=== PATIENT | female | born 1965 | race Caucasian/White ===

== ENCOUNTER 2016-08-05 16:30 | Outpatient (CLI) | payer OTHER ==
--- NOTE | 2016-08-05 19:04 | RAD ---
RIGHT KNEE FOUR VIEWS 08/05/16 HISTORY: 51-year-old female with chronic right knee pain. COMPARISON: 10/16/15. FINDINGS: Degenerative and osteoarthrosis changes of the right knee joint. No fracture or dislocation. IMPRESSION: No fracture or dislocation. Degenerative changes and osteoarthrosis. Stable from 10/16/15. POS: [facility]
== END 2016-08-05 16:31 | disposition home or self-care (01) ==
LOC: BURRAD 16:30
PROVIDERS: ATTEND Family Medicine
DX: M25.561 Pain in right knee (principal); M17.11 Unilateral primary osteoarthritis, right knee

== ENCOUNTER 2017-07-28 14:34 | Emergency (ER) | payer OTHER ==
[2017-07-28 15:05] LABS: #Basophils 0.1 thou/uL (0.0-0.2); #Eosinphils 0.4 thou/uL (0.0-0.7); #Lymphocytes 2.6 thou/uL (1.20-3.40); #Monocytes 0.8 thou/uL (0.11-0.59); #Neutrophils 6.2 thou/uL (1.40-6.50); %Basophils 1.2 % (0.0-1.0); %Eosinophils 3.6 % (0.0-10.0); %Lymphocytes 25.5 % (21.0-51.0); %Monocytes 7.7 % (0.0-10.0); Hemoglobin 11.8 g/dL (12.0-16.0); Mean Corpuscular HGB CONC 34.1 g/dL (32.0-36.0); Mean Corpuscular Hemoglobin 26.8 pg (27.0-31.0); Mean Corpuscular Volume 78.5 fl (81.0-99.0); Mean Platelet Volume 6.2 fL (7.4-10.4); Platelet Count 300 thou/uL (130-400)
[2017-07-28 15:22] LABS: ALT (SGPT) 17 U/L (8-55); AST (SGOT) 13 U/L (5-34); Alkaline Phosphatase 84 U/L (40-150); Anion Gap 14 mmol/L (10-20); BUN (Urea Nitrogen) 24 mg/dL (9.8-20.1); Bilirubin, Total 0.3 mg/dL (0.2-1.2); Calc. Creatinine Clearance 0 mL/min (70-130); Calcium 9.1 mg/dL (7.8-10.44); Carbon Dioxide 25 mmol/L (22-29); Chloride 106 mmol/L (98-107); Estimated GFR-MDRD 88; Globulin 2.7 g/dL (2.4-3.5); Glucose 121 mg/dL (70-105); Potassium 3.9 mmol/L (3.5-5.1); Protein, Total 6.7 g/dL (6.0-8.3); Sodium 141 mmol/L (136-145)
[2017-07-28 15:24] LABS: CKMB 1.5 ng/mL (0-6.6); Troponin I Less than 0.010 ng/mL (< 0.028)
[2017-07-28 18:00] LABS: Troponin I 0.021 ng/mL (< 0.028)
== END 2017-07-28 18:10 | disposition home or self-care (01) ==
LOC: BURERS 14:34
DX: I47.1 Supraventricular tachycardia (principal); E66.9 Obesity, unspecified; F17.210 Nicotine dependence, cigarettes, uncomplicated; Z79.899 Other long term (current) drug therapy
CPT/HCPCS: 80053; 82553; 84484; 85025; 93005

== ENCOUNTER 2019-03-17 04:12 | Emergency (ER) | payer OTHER ==
[2019-03-17] MEDS ORDERED: Adenosine 6 MG/2 ML VIAL ONE (04:22)
[2019-03-17] MEDS ORDERED: Ondansetron PF 4 MG/2 ML Vial ONE (04:28)
[2019-03-17 04:47] LABS: #Basophils 0.2 thou/uL (0.0-0.2); #Eosinphils 0.4 thou/uL (0.0-0.7); #Lymphocytes 4.2 thou/uL (1.20-3.40); %Basophils 1.3 % (0.0-1.0); %Eosinophils 2.9 % (0.0-10.0); %Lymphocytes 28.3 % (21.0-51.0); %Monocytes 6.8 % (0.0-10.0); %Neutrophils 60.8 % (42.0-75.0); Hemoglobin 12.7 g/dL (12.0-16.0); Mean Corpuscular HGB CONC 30.4 g/dL (32.0-36.0); Mean Corpuscular Hemoglobin 25.6 pg (27.0-31.0); Mean Corpuscular Volume 84.4 fL (78.0-98.0); Mean Platelet Volume 7.2 fL (7.4-10.4); Platelet Count 386 thou/uL (130-400); RBC Distribution Width 15.5 % (11.5-14.5); Red Blood Cell (RBC) Count 4.95 mill/uL (4.20-5.40); White Blood Cell (WBC) Count 14.8 thou/uL (4.8-10.8)
[2019-03-17 05:00] LABS: ALT (SGPT) 21 U/L (8-55); AST (SGOT) 11 U/L (5-34); Albumin 4.2 g/dL (3.5-5.0); Alkaline Phosphatase 85 U/L (40-110); Anion Gap 17 mmol/L (10-20); BUN (Urea Nitrogen) 14 mg/dL (9.8-20.1); Bilirubin, Total 0.4 mg/dL (0.2-1.2); Calc. Creatinine Clearance 0 mL/min (70-130); Calcium 9.2 mg/dL (7.8-10.44); Carbon Dioxide 23 mmol/L (22-29); Chloride 108 mmol/L (98-107); Estimated GFR-MDRD 74; Globulin 2.6 g/dL (2.4-3.5); Glucose 160 mg/dL (70-105); Potassium 4.5 mmol/L (3.5-5.1); Protein, Total 6.8 g/dL (6.0-8.3); Sodium 143 mmol/L (136-145)
== END 2019-03-17 05:07 | disposition home or self-care (01) ==
LOC: BURERS 04:12
DX: I47.1 Supraventricular tachycardia (principal); E03.9 Hypothyroidism, unspecified; F17.210 Nicotine dependence, cigarettes, uncomplicated
CPT/HCPCS: 80053; 85025; 93005; J0153; J2405

== ENCOUNTER 2020-01-10 14:05 | Emergency (ER) | payer OTHER ==
[2020-01-10 14:50] LABS: Bilirubin Negative (Negative); Blood, Urine Negative (Negative); Clarity Clear (Clear); Glucose, Urine (Dipstick) Negative (Negative); Ketone, Urine Negative (Negative); Leukocyte Negative (Negative); Nitrite Negative (Negative); Protein, Urine (Dipstick) Negative (Neg-Trace); Specific Gravity, Urine 1.015 (1.005-1.030); Urobilinogen 0.2 mg/dL (Less than 2)
[2020-01-10] MEDS ORDERED: Atenolol 50 MG TAB ONE (15:02)
--- NOTE | 2020-01-10 17:27 | RAD ---
PORTABLE CHEST: 01/10/20 Comparison is made with the 05/29/14 study. The heart is probably upper normal to borderline in size. There is no vascular congestion, edema, or pleural effusion. The lungs are clear. The mediastinum showed no significant changes. The trachea is midline. IMPRESSION: Borderline heart size, exam otherwise unremarkable. POS: HOME
== END 2020-01-10 15:12 ==
LOC: BURERS 14:05
DX: I10 Essential (primary) hypertension (principal); Z79.899 Other long term (current) drug therapy; F17.210 Nicotine dependence, cigarettes, uncomplicated
CPT/HCPCS: 71045; 81003

== ENCOUNTER 2021-04-12 11:23 | Emergency (ER) | payer BC ==
[2021-04-12] MEDS ORDERED: Meclizine HCl 25 MG TAB ONE (12:02)
[2021-04-12] MEDS ORDERED: Ondansetron ODT 4 MG TAB ONE (12:02)
== END 2021-04-12 12:25 | disposition home or self-care (01) ==
LOC: BURERS 11:23
DX: H81.392 Other peripheral vertigo, left ear (principal); E07.9 Disorder of thyroid, unspecified; F17.210 Nicotine dependence, cigarettes, uncomplicated; Z79.899 Other long term (current) drug therapy
CPT/HCPCS: 99284; Q0162

== ENCOUNTER 2021-07-22 06:51 | Emergency (ER) | payer BC ==
[2021-07-22 07:27] LABS: #Basophils 0.1 thou/uL (0.0-0.2); #Eosinphils 0.4 thou/uL (0.0-0.7); #Lymphocytes 2.7 thou/uL (1.20-3.40); #Monocytes 0.7 thou/uL (0.11-0.59); #Neutrophils 7.6 thou/uL (1.40-6.50); %Basophils 1.1 % (0.0-1.0); %Eosinophils 3.4 % (0.0-10.0); %Lymphocytes 23.4 % (21.0-51.0); %Monocytes 5.8 % (0.0-10.0); %Neutrophils 66.3 % (42.0-75.0); Hemoglobin 13.5 g/dL (12.0-16.0); Mean Corpuscular HGB CONC 32.6 g/dL (32.0-36.0); Mean Corpuscular Hemoglobin 27.8 pg (27.0-31.0); Mean Corpuscular Volume 85.4 fL (78.0-98.0); Mean Platelet Volume 7.1 fL (7.4-10.4); Platelet Count 335 thou/uL (130-400); RBC Distribution Width 14.4 % (11.5-14.5); Red Blood Cell (RBC) Count 4.84 mill/uL (4.20-5.40); White Blood Cell (WBC) Count 11.5 thou/uL (4.8-10.8)
[2021-07-22 07:44] LABS: ALT (SGPT) 20 U/L (8-55); AST (SGOT) 10 U/L (5-34); Albumin 4.1 g/dL (3.5-5.0); Alkaline Phosphatase 91 U/L (40-110); Anion Gap 15 mmol/L (10-20); BUN (Urea Nitrogen) 14 mg/dL (9.8-20.1); Bilirubin, Total 0.3 mg/dL (0.2-1.2); Calc. Creatinine Clearance 0 mL/min (70-130); Calcium 9.2 mg/dL (7.8-10.44); Carbon Dioxide 26 mmol/L (22-29); Chloride 107 mmol/L (98-107); Globulin 3.1 g/dL (2.4-3.5); Glucose 181 mg/dL (70-105); Protein, Total 7.2 g/dL (6.0-8.3); Sodium 144 mmol/L (136-145)
[2021-07-22 08:02] LABS: Bilirubin Negative (Negative); Blood, Urine Negative (Negative); Clarity Clear (Clear); Glucose, Urine (Dipstick) Negative (Negative); Ketone, Urine Negative (Negative); Leukocyte Negative (Negative); Nitrite Negative (Negative); Protein, Urine (Dipstick) Negative (Neg-Trace); Specific Gravity, Urine 1.015 (1.005-1.030); Urobilinogen 0.2 mg/dL (Less than 2)
== END 2021-07-22 09:00 | disposition short-term general hospital (02) ==
LOC: BURERS 06:51
DX: I48.91 Unspecified atrial fibrillation (principal); F17.210 Nicotine dependence, cigarettes, uncomplicated; Z79.890 Hormone replacement therapy
CPT/HCPCS: 71045; 80053; 81003; 83880; 84443; 84484; 85025; 93005; 94760; 96374

== ENCOUNTER 2022-03-12 15:08 | Outpatient (CLI) | payer BC | END 2022-03-12 15:09 | disposition home or self-care (01) | LOC: BURRAD 15:08 | PROVIDERS: ATTEND Family Medicine | DX: M25.552 Pain in left hip (principal); R10.32 Left lower quadrant pain | CPT/HCPCS: 72170 ==

== ENCOUNTER 2022-07-22 19:39 | Emergency (ER) | payer BC, OTHER ==
[2022-07-22] MEDS ORDERED: Ketorolac Tromethamine 60 MG/2 ML VIAL ONE (20:08)
[2022-07-22] MEDS ORDERED: Dexamethasone 4 MG TAB ONE (21:08)
== END 2022-07-22 21:16 | disposition home or self-care (01) ==
LOC: BURERS 19:39
DX: M71.551 Other bursitis, not elsewhere classified, right hip (principal); F17.210 Nicotine dependence, cigarettes, uncomplicated
CPT/HCPCS: 96372; J1885; J8540

== ENCOUNTER 2022-11-03 15:04 | Outpatient (CLI) | payer BC | END 2022-11-03 15:05 | disposition home or self-care (01) | LOC: BURRAD 15:04 | PROVIDERS: ATTEND Family Medicine | DX: M25.561 Pain in right knee (principal); M17.11 Unilateral primary osteoarthritis, right knee ==

== ENCOUNTER 2024-01-28 10:25 | Outpatient (CLI) | payer BC | END 2024-01-28 10:26 | disposition home or self-care (01) | LOC: BURRAD 10:25 | DX: R07.81 Pleurodynia (principal) ==

== ENCOUNTER 2025-01-04 12:08 | Outpatient (CLI) | payer OTHER ==
[2025-01-04 13:26] LABS: Hematocrit 30.6 % (36.0-47.0); Hemoglobin 10.6 g/dL (12.0-16.0); MDiff Complete? YES; Mean Corpuscular Hemoglobin 26.1 pg (27.0-31.0); Mean Corpuscular Volume 75.1 fl (78.0-98.0); Platelet Count 305 10x3/uL (130-400); Red Blood Cell (RBC) Count 4.07 mill/uL (4.20-5.40); White Blood Cell (WBC) Count 8.2 10x3/uL (4.8-10.8)
[2025-01-04 13:36] LABS: Chloride 108 mmol/L (98-107); Potassium 4.7 mmol/L (3.5-5.1); Sodium 143 mmol/L (136-145); Triglycerides 83 mg/dL (Less than 150)
[2025-01-04 14:01] LABS: Thyroid Stimulating Hormone 0.467 uIU/mL (0.35-4.94)
[2025-01-04 14:04] LABS: Anion Gap 17 mmol/L (10-20); Cardiac Risk 5.1 (Less than 4.5); Globulin 2.6 g/dL (2.4-3.5); LDL Cholesterol, Calculated 121 mg/dL
[2025-01-04 14:25] LABS: ALT (SGPT) 18 U/L (Less than 34); AST (SGOT) 19 U/L (11-34); Albumin 3.6 g/dL (3.1-4.5); Alkaline Phosphatase 77 U/L (40-110); BUN (Urea Nitrogen) 20 mg/dL (9.8-20.1); Bilirubin, Total 0.3 mg/dL (0.3-1.2); Calc. Creatinine Clearance 0 mL/min (70-130); Calcium 9.0 mg/dL (7.8-10.44); Carbon Dioxide 23 mmol/L (22-29); Cholesterol 172 mg/dl (< 200 Desired); Glucose 86 mg/dL (70-105); HDL Cholesterol 34 mg/dL (>60 Neg Risk)
[2025-01-04 18:44] LABS: Vitamin D, 25 Hydroxy 69.2 ng/ml (> 30.0)
== END 2025-01-04 12:09 | disposition home or self-care (01) ==
LOC: BURLAB 12:08
PROVIDERS: ATTEND Pathology Anatomic Pathology & Clinical Pathology
DX: Z00.00 Encounter for general adult medical examination without abnormal findings (principal)
CPT/HCPCS: 36415; 80050; 80061; 82306; 83036